=== PATIENT | female | born 1945 | race Caucasian/White ===

== ENCOUNTER → 2016-08-11 | Outpatient (CLI) | payer MEDICARE, BC ==
[~2016-08-11] MED LIST: ASPI-611 PO; BISO10TA11 PO; CLOP75TA19 PO; FERR160T22 PO; HYDR-2164 PO; LISI-114 PO; MULT-806 PO; OMEG500C7 PO; POTA10TA PO; [UNRECOGNIZED DRUG - CODE] PO
--- NOTE | 2016-08-12 07:29 | ECHOF ---
ECHOCARDIOGRAM REPORT DATE OF PROCEDURE August 11, 2016 This is a two-dimensional echo with spectral Doppler, color-flow and M-mode. It was obtained in a patient with chest pain and shortness of air. Left atrial dimension is normal. Left ventricle end-diastolic dimension is normal. Left ventricle wall thickness is normal. LV systolic function is normal with ejection fraction of 65%. Right atrium is normal. Right ventricle is normal. Aortic root dimension is normal. Mitral annulus is mildly calcified. Mitral valve leaflets are normal with mild mitral regurgitation. Aortic valve shows fibrocalcific changes with no stenosis or insufficiency. Tricuspid valve shows mild tricuspid regurgitation with estimated pulmonary artery systolic pressure of 33. Pulmonary valve shows trace of pulmonary insufficiency. There is no pericardial effusion. IMPRESSION 1. Normal LV systolic function with ejection fraction of 65%. 2. Mitral annulus calcification with mild mitral regurgitation. 3. Aortic sclerosis. 4. Mild tricuspid regurgitation with estimated pulmonary artery systolic pressure of 33. 5. Trace of pulmonary insufficiency. MTDD
== END ==
LOC: IMA 06:37
PROVIDERS: ATTEND Internal Medicine Cardiovascular Disease
DX: I08.3 Combined rheumatic disorders of mitral, aortic and tricuspid valves (principal); R06.02 Shortness of breath
CPT/HCPCS: 93306

== ENCOUNTER 2016-08-29 10:21 | Outpatient (CLI) | payer MEDICARE, BC ==
[2016-08-29] VITALS (20 sets, daily range): BP systolic 111–171; BP diastolic 56–83; PULSE 68–84; RESP 15–33; TEMP 98.6; O2SAT 93–97; Ht 167.6 cm; Wt 87.7 kg
[~2016-08-29] VITALS: Ht 167.6 cm; Wt 87.7 kg
--- NOTE | 2016-08-29 10:32 | NUR ---
ADMIT PT AMBULATORY TO ROOM 118. ATTENDING.
[2016-08-29] MEDS ORDERED: POTA10TA14 PO (11:06)
[2016-08-29] MEDS ORDERED: PRED20TA PO (11:06)
[2016-08-29] MEDS ORDERED: LOSA100T44 PO (11:06)
[2016-08-29] MEDS ORDERED: LABE300T PO (11:06)
[2016-08-29] MEDS: NORMAL SALINE 1,000 ML IV SCH (11:08)
[2016-08-29 11:23] LABS: HCT - HEMATOCRIT 38.5 % (36-46); HGB - HEMOGLOBIN 13.1 GM/DL (12-16); MEAN CORPUSCULAR HGB 30.2 UUG (26-34); MEAN CORPUSCULAR VOLUME 88.7 UM3 (80-100); MEAN PLATELET VOLUME 10.3 UM3 (9.4-12.4); RED BLOOD COUNT 4.34 M/MM3 (4.00-5.20); WBC - WHITE BLOOD COUNT 4.9 T/MM3 (4.5-11.0)
[2016-08-29 11:41] LABS: ANION GAP 15 MEQ/L (5-15); BUN/CREATININE RATIO 21 RATIO (6-26); CALCIUM 9.6 MG/DL (8.4-10.2); CHLORIDE 105 MEQ/L (98-107); CO2 - CARBON DIOXIDE 23 MEQ/L (22-30); GLOMERULAR FILTRATION RATE 55; GLUCOSE 162 MG/DL (65-110); POTASSIUM 4.3 MEQ/L (3.6-5); SODIUM 143 MEQ/L (134-144)
[2016-08-29 11:52] LABS: LYMPHOCYTES # (MANUAL) 0.8 T/MM3 (1-4.8); NEUTROPHILS #(MANUAL)-ABSOLUTE 4.1 T/MM3 (1.8-7.7); TOTAL CELLS COUNTED 100 %
[2016-08-29] MEDS ORDERED: HEPARIN 1,000units in NS 500ml BAG IV ONE ×2 (12:32→14:53)
[2016-08-29] MEDS ORDERED: LIDOCAINE 1% (10mg/ml) 30ml SDV ONE (12:32)
--- NOTE | 2016-08-29 14:21 | NUR ---
CM CM IN TO VISIT WITH PT. SHE IS ALERT AND ORIENTED. HER SPOUSE IS PRESENT. PT PLANS TO DC HOME. SHE DENIES DC NEEDS. SHE IS GIVEN CM CONTACT INFORMATION. Addendum: 08/29/16 at 1422 by SATURNINO MAC RN Amended: Links added.
--- NOTE | 2016-08-29 14:36 | NUR ---
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 ATTENDING.
[2016-08-29] MEDS ORDERED: MIDAZOLAM 2mg/2ml INJECTION ONE (14:46)
[2016-08-29] MEDS ORDERED: NITROGLYCERIN 50mg/10ml INJECTION IV ONE (14:46)
[2016-08-29] MEDS ORDERED: FENTANYL 100mcg/2ml INJECTION ONE (14:46)
[2016-08-29] MEDS ORDERED: VERAPAMIL 5mg/2ml INJECTION IV ONE (14:46)
[2016-08-29] MEDS ORDERED: LORAZEPAM 0.5 MG TABLET PO PRN (15:30)
[2016-08-29] MEDS ORDERED: ATROPINE 1 MG/ML VIAL IV PRN (15:30)
[2016-08-29] MEDS ORDERED: NITROGLYCERIN 0.4 MG SUBLINGUAL TABLET SL PRN (15:30)
[2016-08-29] MEDS ORDERED: MILK OF MAGNESIA 30 ML SUSP PO PRN (15:30)
[2016-08-29] MEDS ORDERED: LORAZEPAM 2 MG/ML INJECTION IV PRN (15:30)
[2016-08-29] MEDS ORDERED: ONDANSETRON 4mg/2ml INJECTION IV PRN (15:30)
[2016-08-29] MEDS ORDERED: METOCLOPRAMIDE 10mg/2ml INJECTION IV PRN (15:30)
[2016-08-29] MEDS ORDERED: MAG-AL + SIM LIQUID 30 ML UDC PO PRN (15:30)
[2016-08-29] MEDS ORDERED: ACETAMINOPHEN 325 MG TABLET PO PRN (15:30)
[2016-08-29] MEDS ORDERED: BISACODYL 5 MG E.C. TABLET PO PRN (15:30)
[2016-08-29] MEDS ORDERED: BISACODYL 10 MG SUPPOSITORY RECTALLY PRN (15:30)
--- NOTE | 2016-08-29 15:32 | NUR ---
RETURN PT RETURNED TO ROOM 118 PER CATH CART. WAS ABLE TO TRANSFER SELF TO S.U. BED. SOME SANGUINOUS DRAINAGE NOTED AT RT RADIAL SITE. MONITORING TO INSURE IT IS NOT FROM PUNCTURE. PT VERBALIZING UNDERSTANDING. PT DENIES DISCOMFORT. RADIAL PULSE STRONG TO PALPATION. AT BEDSIDE.
--- NOTE | 2016-08-29 16:15 | NUR ---
BLEEDING ASKED Charles WOODWARD CATH TECH TO ASSESS BLEEDING AROUND TR BAND. HAD INSERTED 2CC AIR. ERINN INSTRUCTED ADDING 1MORE CC AIR AT THIS TIME.
[2016-08-29] MEDS: FERROUS SULFATE 45 MG PO SCH ×2 (17:30→23:41)
--- NOTE | 2016-08-29 18:50 | NUR ---
Charles WOODWARD, TREND INVESTIGATOR, IN ROOM TO RE-EVALUATE TR BAND/BLEEDING. ATTEMPTED TO REMOVE AIR. 2CC OUT MAKING TOTAL 19CC AIR AT THIS TIME. SM AMT OF BLEEDING STILL APPARENT. ERINN WILL RE-EVALUATE AGAIN BEFORE HE LEAVES.
[2016-08-29] MEDS: LABETALOL 300 MG PO SCH (23:41)
--- NOTE | 2016-08-29 23:54 | NUR ---
SUMMARY PT AWAKE AND ALERT. NO COMPLAINTS OF PAIN OR DISCOMFORT. ABLE TO START REMOVING AIR FROM TR BAND AFTER 1999. RIGHT WRIST SITE SOFT WITHOUT SIGNS OF HEMATOMA. TR BAND REMAINS IN PLACE WITH 10CC'S OF AIR-CONTINUE TO REMOVE GRADUALLY EVERY 15 MINUTES. REPORT GIVEN TO ONCOMING RN-HELEN SCHULTZ.
[2016-08-30] VITALS (13 sets, daily range): BP systolic 104–152; BP diastolic 54–69; PULSE 72–77; RESP 17–23; TEMP 97.4–97.7; O2SAT 93–98
[2016-08-30] MEDS: NORMAL SALINE 1,000 ML IV SCH (01:44)
--- NOTE | 2016-08-30 02:14 | NUR ---
Chart Check 24 hour chart check completed
[2016-08-30 05:12] LABS: BASOPHILS % (AUTO) 0.2 % (0-2); EOSINOPHILS % (AUTO) 0.2 % (0-4); HCT - HEMATOCRIT 35.2 % (36-46); HGB - HEMOGLOBIN 11.8 GM/DL (12-16); IMMATURE GRANULOCYTE # (AUTO) 0.02 T/MM3 (0.00-0.03); IMMATURE GRANULOCYTE % (AUTO) 0.2 % (0.0-0.5); LYMPHOCYTES # (AUTO) 1.5 T/MM3 (1-4.8); LYMPHOCYTES % (AUTO) 16.9 % (23-45); MEAN CORPUSCULAR HGB 30.1 UUG (26-34); MEAN CORPUSCULAR HGB CONC(MCHC 33.5 GM/DL (31-37); MEAN CORPUSCULAR VOLUME 89.8 UM3 (80-100); MEAN PLATELET VOLUME 9.8 UM3 (9.4-12.4); MONOCYTES # (AUTO) 0.8 T/MM3 (0-0.8); NEUTROPHILS #(AUTO)-ABSOLUTE 6.3 T/MM3 (1.8-7.7); NEUTROPHILS % (AUTO) 73.5 % (33-66); RED BLOOD COUNT 3.92 M/MM3 (4.00-5.20); WBC - WHITE BLOOD COUNT 8.6 T/MM3 (4.5-11.0)
--- NOTE | 2016-08-30 05:21 | NUR ---
SHIFT SUMMARY PT ALERT AND ORIENTED X 3. PT DENIES PAIN/N/V/SOA. TR BAND REMOVED AT 0415 AND DRESSING APPLIED, NO S/S OF BLEEDING OR HEMATOMA-TISSUE SOFT. CARDIAC DIET. PT UP WITH ASSIST X ONE, STEADY GAIT. PT AMBULATED IN HALLWAY AFTER DRESSING APPLIED, PT STATED THAT SHE COULDN'T BELIEVE IT, SHE COULD WALK WITHOUT HAVING TO STOP AND CATCH HER BREATH. IVL IN LEFT FOREARM, FLUSHES WELL. BED LOCKED AND LOW, BED ALARM ON. CALL LIGHT WITHIN REACH. WILL CONTINUE TO MONITOR.
[2016-08-30 05:29] LABS: ANION GAP 12 MEQ/L (5-15); BUN/CREATININE RATIO 20 RATIO (6-26); CALCIUM 8.9 MG/DL (8.4-10.2); CHLORIDE 105 MEQ/L (98-107); CO2 - CARBON DIOXIDE 26 MEQ/L (22-30); CREATININE 1.1 MG/DL (0.7-1.2); GLOMERULAR FILTRATION RATE 49; GLUCOSE 106 MG/DL (65-110); POTASSIUM 3.5 MEQ/L (3.6-5); SODIUM 143 MEQ/L (134-144)
--- NOTE | 2016-08-30 07:12 | CVPROF ---
DATE OF PROCEDURE August 29, [address] Dick Porras The patient is a pleasant 71-year-old lady with history of coronary artery disease who has been having increasing angina and was referred for further evaluation by cardiac catheterization and possible intervention. Informed consent was obtained after explaining the procedure and the potential risks to the patient who agreed to proceed with the procedure. PROCEDURE 1. Left heart catheterization. 2. Coronary angiography. 3. PTCA and stent of LAD using 2.75 x 12 and 2.75 x 8 mm drug-eluting Resolute Integrity stents. TECHNIQUE She was prepped and draped in the usual sterile techniques. 1% lidocaine was used for local anesthesia. Using modified Seldinger technique, arterial access was obtained into the right radial artery with placement of a 6-Welsh arterial sheath. Conscious sedation was performed using Versed and fentanyl. 3,000 units of heparin, 300 mcg of nitroglycerin and 2.5 mg of verapamil were given through the arterial sheath. Additional 4,000 units of IV heparin was administered prior to intervention. LEFT VENTRICULOGRAPHY Left ventriculography in single-plane JETT shallow projection showed normal LV systolic function with ejection fraction of about 65% with no mitral regurgitation or gradient across the aortic valve. LVEDP was about 3. CORONARY ANGIOGRAPHY Left main was free of significant lesions. Left anterior descending artery had an endovascular stent proximally which had about 80% in-stent stenosis and about 70% stenosis proximal to stent. Mid LAD had about 80% stenosis, however, at that level the LAD was less than 2 mm in diameter. First diagonal also had about 30% stenosis. Left circumflex artery had minor irregularities with no significant lesions. Right coronary artery was large and dominant with an endovascular stent which was widely patent. Remaining course of RCA had about 20-30% stenosis. After reviewing the images we decided to proceed with intervention on LAD. Our sheath was exchanged for a 6-Welsh Cloudy Days left guide which was advanced to the ostium of the left main. Runthrough wire was used to cross the lesion through the LAD into mid diagonal. A 2.5 x 12 drug-eluting Resolute Integrity stent was delivered to the in-stent stenosis site where it was deployed by inflating the balloon to 14 atmospheres. There was a small residual stenosis of about 30% and therefore we used a 2.75 x 12 high-pressure balloon which was inflated up to 20 atmospheres. Next, angiogram showed less than about 20% residual stenosis. Next, we used a 2.75 x 9 mm drug-eluting Resolute Integrity stent which was delivered to the proximal lesion site where it was deployed by inflating the balloon to 14 atmospheres with minimal overlap with the previous stent. Final angiogram showed excellent results with about 20% residual stenosis at the stented site. We did not wish to proceed with any further intervention in mid LAD due to size of the vessel. The patient tolerated the procedure well with no complications. IMPRESSION 1. Coronary artery disease as described above. 2. Successful PTCA and stent of LAD using a 2.75 x 12 and a 2.75 x 9 mm drug-eluting Resolute Integrity stents. 3. Normal LV systolic function with ejection fraction of about 65%. PLAN Continue dual antiplatelet therapy for at least one year and continue risk management. MTDD
[2016-08-30] MEDS ORDERED: HYDROCHLOROTHIAZIDE 25 MG PO SCH (08:00)
[2016-08-30] MEDS ORDERED: --POM--POTASSIUM CHLORIDE 10 MEQ TABLET PO SCH (08:00)
[2016-08-30] MEDS: FERROUS SULFATE 45 MG PO SCH ×2 (08:27→11:36)
[2016-08-30] MEDS: LABETALOL 300 MG PO SCH (08:29)
[2016-08-30] MEDS ORDERED: --POM--LOSARTAN 100 MG TABLET PO SCH (09:00)
[2016-08-30] MEDS ORDERED: MULTIVITAMIN PLAIN TABLET PO SCH (09:00)
[2016-08-30] MEDS ORDERED: ASPIRIN *EC* 81mg TABLET PO SCH (09:00)
[2016-08-30] MEDS ORDERED: --POM--ASPIRIN *EC* 81mg TABLET PO SCH (09:00)
[2016-08-30] MEDS ORDERED: --POM--CLOPIDOGREL 75 MG TABLET PO SCH (09:00)
[2016-08-30] MEDS ORDERED: CLOPIDOGREL 75 MG TABLET PO SCH (09:00)
--- NOTE | 2016-08-30 09:33 | NUR ---
CM CM IN TO VISIT PATIENT, SHE IS UP IN CHAIR, A&O. NO FAMILY IS PRESENT. PATIENT PLANS TO DISCHARGE HOME, DENIES DISCHARGE NEEDS. CM CONTACT INFORMATION PROVIDED.
--- NOTE | 2016-08-30 09:34 | NUR ---
CARDIAC REHAB: VISITED WITH PATIENT ABOUT CARDIAC REHAB, BROCHURE GIVEN. PATIENT LIVES IN [place] SO ALSO GAVE [place] PROGRAM CONTACT BUT SHE WILL DECIDED WHICH PROGRAM IN THE NEXT COUPLE DAYS AND WE WILL FOLLOW UP WITH HER.
[2016-08-30] MEDS ORDERED: POTASSIUM CHLORIDE 20 MEQ TABLET PO ONE (10:15)
[2016-08-30] MEDS ORDERED: PITA2TAB PO (11:17)
--- NOTE | 2016-08-30 14:49 | NUR ---
DC INSTRUCTIONS DC INSTRUCTIONS INCLUDING DIET, ACTIVITY, MEDICATIONS, SCRIPTS, LABS, FOLLOW UP APPOINTMENT, STENT ID CARD, REPORTABLE S/S AND [facility] TRANS RADIAL HEART CATH INSTRUCTIONS GIVEN AND REVIEWED WITH PATIENT. SCRIPTS FOR LABS GIVEN TO PATIENT AND COPIES PLACED IN CHART. PT VERBALIZED UNDERSTANDING OF THESE INSTRUCTIONS AND HAD NO FURTHER QUESTIONS.
--- NOTE | 2016-08-30 16:37 | NUR ---
DISCHARGE PT DISCHARGED TO HOME AT THIS TIME IN THE COMPANY OF HER . PT TRANSPORTED TO THE ER ENTRANCE BY WHEELCHAIR AND STAFF. IVL DISCONTINUED. ARMBAND REMOVED. SPLINT TO RIGHT WRIST REMAINED IN PLACE. DISCHARGE INSTRUCTIONS GIVEN PER PREVIOUS NOTE. PERSONAL BELONGINGS AND HOME MEDICATIONS RETURNED.
== END 2016-08-30 16:37 | disposition home or self-care (01) ==
LOC: SRG 10:21 → CATH 10:21
PROVIDERS: ATTEND Internal Medicine Cardiovascular Disease
DX: T82.855A Stenosis of coronary artery stent, initial encounter (principal); I25.709 Atherosclerosis of coronary artery bypass graft(s), unspecified, with unspecified angina pectoris; R07.2 Precordial pain; I10 Essential (primary) hypertension; E78.2 Mixed hyperlipidemia; I27.2 Other secondary pulmonary hypertension; Z79.82 Long term (current) use of aspirin; Z79.02 Long term (current) use of antithrombotics/antiplatelets; Z79.52 Long term (current) use of systemic steroids; Z79.899 Other long term (current) drug therapy; Z82.49 Family history of ischemic heart disease and other diseases of the circulatory system
CPT/HCPCS: 36415; 80048; 85025; 93005; 93458; A9270; C1725; C1769; C1874; C1887; C1893; C9600; J1644; J2250; J3010; J3490; J7030; Q9967

== ENCOUNTER 2016-11-04 08:36 | Observation (INO) ==
[2016-11-04] MEDS: NITROGLYCERIN 0.4 MG SUBLINGUAL TABLET SL PRN ×3 (08:57→09:10)
[2016-11-04] MEDS: SALINE FLUSH 10ml SYRINGE IVF PRN ×2 (09:00→09:37)
--- NOTE | 2016-11-04 09:04 | Emergency Department Report ---
Chest Pain HPI - General Chief Complaint: Chest Pain Stated Complaint: heart pain, nausea Time Seen by Provider: 11/04/16 08:40 Source: patient Mode of arrival: ambulatory Limitations: no limitations - History of Present Illness HPI narrative: Patient is a 71-year-old female, presents to the emergency department for evaluation of chest tightness, not feeling well. Patient status post cardiac catheterization in August had 2 stents placed at that time. Patient states that there was an area of stenosis that they were having difficulty with so that was not stented. Patient has been in usual state of good health until last night patient states that they were doing some work further business in the wee hours of the morning she started to not feel well. Patient woke up this morning continuing to not feel well, went to work and patient started having some what she described as a fullness feeling in her chest and tightness. Patient decided present to the ER. Patient does have nitroglycerin at home, however did not take. On arrival patient's vital signs are within defined limits currently complaining of 8/10 "fullness". MD complaint: chest pain Occurred At: home Onset (ago): hour(s) Duration: constant Quality: tightness - Related Data Home Medications Medication Instructions Recorded Confirmed Clopidogrel Bisulfate [Plavix] 75 mg PO DAILY #0 11/16/11 11/04/16 hydroCHLOROthiazide 25 mg PO DAILY #0 11/16/11 11/04/16 [Hydrochlorothiazide] Labetalol HCl 300 mg PO HS #0 tab 08/29/16 11/04/16 Potassium Chloride 10 meq PO 2-4XD #0 tab 08/29/16 11/04/16 Losartan Potassium 300 mg PO HS #0 tab 09/29/16 11/04/16 Aspirin [[place] Aspirin] 81 mg PO HS 11/04/16 11/04/16 Ferrous Sulfate [Slow Release Iron] 1 tab PO DAILY 11/04/16 11/04/16 Multivitamin [One-A-Day Essential] 2 each PO HS 11/04/16 11/04/16 Pitavastatin Calcium [Livalo] 2 mg PO DAILY 11/04/16 11/04/16 Allergies Allergy/AdvReac Type Severity Reaction Status Date / Time Penicillins Allergy Mild RASH Verified 11/04/16 08:49 Sulfa (Sulfonamide Allergy Mild RASH Verified 11/04/16 08:49 Antibiotics) codeine Allergy Unknown RED ITCHY Verified 11/04/16 08:49 latex Allergy Unknown RASH, Verified 11/04/16 08:49 BLISTER levofloxacin Allergy Unknown SWELLING, Verified 11/04/16 08:49 BLURRED VISION atorvastatin calcium Allergy Unknown TURNS RED, Uncoded 11/04/16 08:49 SWELLING OF MOUTH AND TONGUE, MYALGIAS iodine-123 Allergy Unknown SWELLING, Uncoded 11/04/16 08:49 REDNESS PFS Patient Stated Medical History Other HEENT Yes: SINUS Angina Yes Hypertension Yes Other Yes: YEAST INFECTIONS WITH ABX Other Hematologic Yes: B Medical History Updates: CAD - Social History Smoking status: Never smoker Substance use type: does not use Alcohol intake frequency: does not drink Physical Exam - Limitations Limitations: no limitations - General General appearance: alert, in no apparent distress - ENT ENT exam: Present: normal oropharynx, mucous membranes moist - Neck Neck exam: Present: full ROM - Chest Chest inspection: Present: symmetric chest wall rise. Absent: tenderness, rash - Respiratory Respiratory exam: Present: normal lung sounds bilaterally. Absent: respiratory distress, wheezes, stridor - Cardiovascular Cardiovascular exam: Present: regular rate, normal rhythm - Abdominal Exam Abdominal exam: Present: soft. Absent: distention, tenderness - Extremities Exam Extremities exam: Present: full ROM, normal capillary refill. Absent: tenderness - Skin Skin exam: Present: warm, dry - Neurological Exam Neurological exam: Present: alert, oriented X3 - Psychiatric Psychiatric exam: Present: normal affect, normal mood Course Vital Signs Temperature 98.3 F 11/04/16 08:38 Pulse Rate 73 11/04/16 08:38 Respiratory Rate 20 11/04/16 08:38 Blood Pressure 134/67 11/04/16 08:38 Pulse Oximetry 98 11/04/16 08:38 Temperature 98.5 F 11/04/16 15:43 Pulse Rate 68 11/04/16 15:43 Respiratory Rate 16 11/04/16 15:43 Blood Pressure 117/58 11/04/16 15:43 Pulse Oximetry 94 11/04/16 15:43 Chest Pain - Differential Diagnosis Likely: pneumothorax, stable angina, unstable angina pectoris, atypical chest pain, costochondritis, chest pain - Medical Records Data Attestation: I reviewed the patient's medical records. - Lab Data Attestation: I reviewed the patient's lab results. Result diagrams: 11/04/16 08:59 11/04/16 08:59 Lab Results 11/04/16 11/04/16 Range/Units 08:59 08:59 WBC 5.2 (4.5-11.0) T/MM3 RBC 3.98 L (4.00-5.20) M/MM3 Hgb 12.1 (12-16) GM/DL Hct 37.4 (36-46) % MCV 94.0 (80-100) UM3 MCH 30.4 (26-34) UUG MCHC 32.4 (31-37) GM/DL RDW Std Deviation 44.8 (36.9-50.2) FL Plt Count 212 (130-400) T/MM3 MPV 9.5 (9.4-12.4) UM3 Immature Gran % (Auto) 0.2 (0.0-0.5) % Neut % (Auto) 60.8 (33-66) % Lymph % (Auto) 22.5 L (23-45) % [place] % (Auto) 9.6 H (0-9.0) % Eos % (Auto) 6.3 H (0-4) % Baso % (Auto) 0.6 (0-2) % Neut # 3.2 (1.8-7.7) T/MM3 Lymph # 1.2 (1-4.8) T/MM3 [place] # 0.5 (0-0.8) T/MM3 Eos # 0.3 (0-0.5) T/MM3 Baso # 0.0 (0-0.2) T/MM3 Abs Immat Gran (auto) 0.01 (0.00-0.03) T/MM3 Turbidity < 20 (0-20) Sodium 141 (134-144) MEQ/L Potassium 4.0 (3.6-5) MEQ/L Chloride 106 (98-107) MEQ/L Carbon Dioxide 27 (22-30) MEQ/L Anion Gap 8 (5-15) MEQ/L BUN 15.0 (7-17) MG/DL Creatinine 1.1 (0.7-1.2) MG/DL GFR Calculation 49 BUN/Creatinine Ratio 14 (6-26) RATIO Glucose 87 (65-110) MG/DL Calculated Osmolality 271 (261-280) MOSM/KG Calcium 8.9 (8.4-10.2) MG/DL Total Bilirubin 0.50 (0.20-1.30) MG/DL Icterus Index < 2 (0-7) AST 21 (14-36) U/L ALT 36 (9-52) U/L Alkaline Phosphatase 92 (38-126) U/L Troponin I < 0.012 (0-0.12) ng/ml B-Natriuretic Peptide 396 H (0-175) pg/mL Total Protein 6.5 (6.3-8.2) G/DL Albumin 4.2 (3.5-5.0) G/DL Globulin 2.3 L (2.4-3.6) G/DL Albumin/Globulin Ratio 1.8 (1.1-2.2) RATIO Specimen Hemolysis < 15 (0-25) - Radiology Data Attestation: I reviewed the patient's radiology results. - EKG Data EKG #1 EKG shows normal: sinus rhythm Rate: normal Rhythm: NSR [place]/QRS: normal Interpretation: no acute changes Disposition Clinical Impression: Chest pain Qualifiers: Chest pain type: unspecified Qualified Code(s): R07.9 - Chest pain, unspecified Disposition: 02 To [facility] Condition: Stable Time of Disposition: 09:40 - Seen By: physician
--- NOTE | 2016-11-04 09:24 | XRay Report ---
Indication: chest pain PROCEDURE: XR chest 1V: Encounter: Initial Comparison: May 10, 2016 Findings: The lungs are stable in appearance without new focal airspace consolidation. There is no pleural effusion or pneumothorax. The heart size, pulmonary vascularity and mediastinal contours are unchanged. Coronary artery stents. IMPRESSION: Stable appearance of the chest without acute cardiopulmonary disease. .
[2016-11-04] MEDS ORDERED: ONDANSETRON 4 MG/2 ML INJECTION IVP ONE (09:29)
[2016-11-04] MEDS ORDERED: MORPHINE SULFATE 2 MG SYRINGE IVP ONE ×2 (09:29→10:07)
[2016-11-04 10:57] VITALS: BMI 32.2
--- NOTE | 2016-11-04 11:58 | Cardiology History & Physical ---
History of Present Illness Chief complaint: chest pain HPI: Raina is a 71 year old female who is well known to Dr. Beltran who has a history of CAD with coil and stents, pulmonary hypertension, HTN and HLD. Her last heart cath was in August of 2016 at which time she had in stent stenosis to the stent in her LAD, which was restented and and ballooned. She arrived this morning to [facility] for cardiac rehab and after 6 minutes on the stationary bicycle she began to have chest tightness and severe nausea. She was taken to the ED. Her EKG showed a SR with minimal ST depression in precordial leads similar to last clinic EKG in August. She was given Nitro SL and MS IV which eased the pain some but did not resolve it completely. She describes the feeling of her heart is full or expanding against her chest wall and the chest is restricting her heart. Troponin was negative and Chest xray showed no cardiopulmonary disease. I examined her in the ED. She reports the discomfort is about 6/8 at this time, nausea has resolved following anti-emetic. She denies SOA, dizziness or syncope. She has recently seen a Dr who began her on a nasal steroid for sinusitis, other german has been in her usual state of health. Review of Systems - Constitutional Constitutional: Absent: chills, fever(s) - EENMT Eyes: Absent: change in vision Balance: Absent: vertigo Mouth/Throat: Absent: sore throat - Cardiovascular Cardiovascular: Present: chest pain. Absent: palpitations, syncope, dyspnea on exertion Vascular: Present: pedal edema - Respiratory Respiratory: Absent: cough, dyspnea - Gastrointestinal Gastrointestinal: Absent: diarrhea, nausea, vomiting - Genitourinary Genitourinary: Absent: dysuria - Integumentary/Breasts Integumentary: Absent: rash - Neurological Neurological: Absent: dizziness PFSH Patient Stated Medical History Other HEENT Yes: SINUS Angina Yes Hypertension Yes Hyperlipidemia Yes Other Yes: YEAST INFECTIONS WITH ABX Medical History Updates: CAD Surgical History: Total Hysterectomy. Cholecystectomy. Heart cath with stents. multiple foot surgeries. inguinal and hiatel hernias Family History: CHF -Mother - Social History Smoking status: Never smoker Substance use type: does not use Alcohol intake frequency: holidays/special occasions only Household members: spouse Current occupational status: retired Current residence: Apartment/Private Home Medications Home Medications Medication Instructions Recorded Confirmed Type Clopidogrel Bisulfate [Plavix] 75 mg PO DAILY #0 11/16/11 11/04/16 History hydroCHLOROthiazide 25 mg PO DAILY #0 11/16/11 11/04/16 History [Hydrochlorothiazide] Labetalol HCl 300 mg PO HS #0 tab 08/29/16 11/04/16 History Potassium Chloride 10 meq PO 2-4XD #0 tab 08/29/16 11/04/16 History Losartan Potassium 300 mg PO HS #0 tab 09/29/16 11/04/16 History Aspirin [[place] Aspirin] 81 mg PO HS 11/04/16 11/04/16 History Ferrous Sulfate [Slow Release Iron] 1 tab PO DAILY 11/04/16 11/04/16 History Multivitamin [One-A-Day Essential] 2 each PO HS 11/04/16 11/04/16 History Pitavastatin Calcium [Livalo] 2 mg PO DAILY 11/04/16 11/04/16 History Allergies Allergy/AdvReac Type Severity Reaction Status Date / Time Penicillins Allergy Mild RASH Verified 11/04/16 08:49 Sulfa (Sulfonamide Allergy Mild RASH Verified 11/04/16 08:49 Antibiotics) codeine Allergy Unknown RED ITCHY Verified 11/04/16 08:49 latex Allergy Unknown RASH, Verified 11/04/16 08:49 BLISTER levofloxacin Allergy Unknown SWELLING, Verified 11/04/16 08:49 BLURRED VISION atorvastatin calcium Allergy Unknown TURNS RED, Uncoded 11/04/16 08:49 SWELLING OF MOUTH AND TONGUE, MYALGIAS iodine-123 Allergy Unknown SWELLING, Uncoded 11/04/16 08:49 REDNESS Exam Vital signs: Temperature 98.6 F 11/04/16 10:46 Pulse Rate 64 11/04/16 11:09 Respiratory Rate 12 11/04/16 10:46 Blood Pressure 129/60 11/04/16 10:46 Pulse Oximetry 95 11/04/16 10:46 Oxygen Delivery Method Room Air - Constitutional no acute distress, well nourished, cooperative - Routine HEENT Exam ENT: Present: mucous membranes moist - Routine Neck Exam Absent: JVD, carotid bruit - Routine Chest/Breast/Axilla Exam Chest wall: Absent: tenderness - Routine Respiratory Exam Present: CTA bilaterally. Absent: rales, wheezes - Routine Cardiovascular Exam Present: RRR, S1, S2, no murmur. Absent: JVD - Routine Abdominal Exam Present: soft, non tender - Routine Extremities Exam Present: edema (trace) - Routine Skin Exam Present: intact - Routine Neurological Exam Present: alert, oriented X3 - Routine Psychiatric Exam Present: normal affect, normal thought process Results 11/04/16 08:59 11/04/16 08:59 Intake and Output 11/03/16 11/04/16 11/04/16 22:59 06:59 14:59 Other: Weight 199 lb 11.821 oz Patient Weight 11/05/16 06:59 Weight 199 lb 11.821 oz Laboratory Results - last 48 hr 11/04/16 11/04/16 08:59 08:59 WBC 5.2 RBC 3.98 L Hgb 12.1 Hct 37.4 MCV 94.0 MCH 30.4 MCHC 32.4 RDW Std Deviation 44.8 Plt Count 212 MPV 9.5 Immature Gran % (Auto) 0.2 Neut % (Auto) 60.8 Lymph % (Auto) 22.5 L [place] % (Auto) 9.6 H Eos % (Auto) 6.3 H Baso % (Auto) 0.6 Neut # 3.2 Lymph # 1.2 [place] # 0.5 Eos # 0.3 Baso # 0.0 Abs Immat Gran (auto) 0.01 Turbidity < 20 Sodium 141 Potassium 4.0 Chloride 106 Carbon Dioxide 27 Anion Gap 8 BUN 15.0 Creatinine 1.1 GFR Calculation 49 BUN/Creatinine Ratio 14 Glucose 87 Calculated Osmolality 271 Calcium 8.9 Total Bilirubin 0.50 Icterus Index < 2 AST 21 ALT 36 Alkaline Phosphatase 92 Troponin I < 0.012 B-Natriuretic Peptide 396 H Total Protein 6.5 Albumin 4.2 Globulin 2.3 L Albumin/Globulin Ratio 1.8 Specimen Hemolysis < 15 EKG interpretations - Dysrhythmias Sinus rhythms and dysrhythmias: sinus rhythm - Blocks, axis, hypertrophy, ST abn Repolarization changes or abnormalities: nonspecific abnormality, ST segment, and/or T wave Hospital Course This is a general summary of the patient's hospital course. For more details refer to the complete medical record. Assessment and Plan (1) Chest pain Status: Resolved Trend serial troponin levels, first is negative. Repeat EKG later. Echo report pending, not concerning per Dr. Beltran who was at the bedside while is was being obtained. (2) Atherosclerosis of coronary artery bypass graft without angina pectoris Status: Chronic Continue dual antiplatelet therapy with Aspirin 81mg and Plavix 75mg daily (3) Other secondary pulmonary hypertension Status: Chronic routine monitoring (4) Essential (primary) hypertension Status: Chronic Well controlled on current therapy, continue home medications (5) Mixed hyperlipidemia Status: Chronic Patient takes Livalo, continue current therapy - Attestation Attestation Narrative: Recommendation After examining the patient I agree with the above assessment. I am involved in the formulation of the patient's plan of care. Sepsis Assessment - Evaluation Sepsis screening result: No Definite Risk
[2016-11-04] MEDS ORDERED: ASPIRIN 81 MG CHEWABLE TABLET PO SCH (22:00)
[2016-11-04] MEDS ORDERED: LABETALOL 100 MG TABLET PO SCH (22:00)
[2016-11-05] MEDS ORDERED: FERROUS SULFATE 324 MG TABLET PO SCH (08:00)
[2016-11-05] MEDS ORDERED: LOSARTAN 100 MG TABLET PO SCH (09:00)
[2016-11-05] MEDS ORDERED: CLOPIDOGREL 75 MG TABLET PO SCH (09:00)
[2016-11-05] MEDS ORDERED: PITAVASTATIN CALCIUM 2 MG PO SCH (09:00)
[2016-11-05] MEDS ORDERED: MULTI-VITAMIN + MINERAL TABLET PO SCH (09:00)
[2016-11-05 15:19] VITALS: BP 109/50; RESP 16; TEMP 98.2; O2SAT 94
[2016-11-05 16:20] VITALS: PULSE 69
--- NOTE | 2016-11-05 16:33 | Discharge Instructions ---
Discharge Plan - Med Rec/Dispo Referrals/Follow Up: Jean Beltran MD [Physician] - Prescriptions: No Action hydroCHLOROthiazide [Hydrochlorothiazide] 25 mg PO DAILY #0 Clopidogrel Bisulfate [Plavix] 75 mg PO DAILY #0 Labetalol HCl 300 mg PO HS #0 tab Aspirin [[place] Aspirin] 81 mg PO HS Pitavastatin Calcium [Livalo] 2 mg PO DAILY Multivitamin [One-A-Day Essential] 2 each PO HS Potassium Chloride 10 meq PO 2-4XD #0 tab Losartan Potassium 300 mg PO HS #0 tab Ferrous Sulfate [Slow Release Iron] 1 tab PO DAILY - Disposition 01 Discharged Home, Self-Care
--- NOTE | 2016-11-05 16:36 | Discharge Summary ---
Discharge Information Date of admission: 11/04/16 10:39 Attending Physician: Jean Beltran MD Primary care physician: Gus Rao - Discharge Diagnosis (1) Chest pain Qualifiers: Chest pain type: unspecified Qualified Code(s): R07.9 - Chest pain, unspecified Status: Resolved (2) Atherosclerosis of coronary artery bypass graft without angina pectoris Status: Chronic (3) Other secondary pulmonary hypertension Status: Chronic (4) Essential (primary) hypertension Status: Chronic (5) Mixed hyperlipidemia Status: Chronic - Laboratory Labs: Laboratory Results - last 24 hr 11/04/16 11/05/16 20:44 02:57 Troponin I < 0.012 < 0.012 Specimen Hemolysis < 15 < 15 Laboratory Tests 11/04/16 11/04/16 11/04/16 08:59 08:59 15:13 WBC 5.2 RBC 3.98 L Hgb 12.1 Hct 37.4 MCV 94.0 MCH 30.4 MCHC 32.4 RDW Std Deviation 44.8 Plt Count 212 MPV 9.5 Immature Gran % (Auto) 0.2 Neut % (Auto) 60.8 Lymph % (Auto) 22.5 L [place] % (Auto) 9.6 H Eos % (Auto) 6.3 H Baso % (Auto) 0.6 Neut # 3.2 Lymph # 1.2 [place] # 0.5 Eos # 0.3 Baso # 0.0 Abs Immat Gran (auto) 0.01 Turbidity < 20 Sodium 141 Potassium 4.0 Chloride 106 Carbon Dioxide 27 Anion Gap 8 BUN 15.0 Creatinine 1.1 GFR Calculation 49 BUN/Creatinine Ratio 14 Glucose 87 Calculated Osmolality 271 Calcium 8.9 Total Bilirubin 0.50 Icterus Index < 2 AST 21 ALT 36 Alkaline Phosphatase 92 Troponin I < 0.012 < 0.012 B-Natriuretic Peptide 396 H Total Protein 6.5 Albumin 4.2 Globulin 2.3 L Albumin/Globulin Ratio 1.8 Specimen Hemolysis < 15 < 15 11/04/16 11/05/16 20:44 02:57 WBC RBC Hgb Hct MCV MCH MCHC RDW Std Deviation Plt Count MPV Immature Gran % (Auto) Neut % (Auto) Lymph % (Auto) [place] % (Auto) Eos % (Auto) Baso % (Auto) Neut # Lymph # [place] # Eos # Baso # Abs Immat Gran (auto) Turbidity Sodium Potassium Chloride Carbon Dioxide Anion Gap BUN Creatinine GFR Calculation BUN/Creatinine Ratio Glucose Calculated Osmolality Calcium Total Bilirubin Icterus Index AST ALT Alkaline Phosphatase Troponin I < 0.012 < 0.012 B-Natriuretic Peptide Total Protein Albumin Globulin Albumin/Globulin Ratio Specimen Hemolysis < 15 < 15 History of Present Illness HPI: Raina is a 71 year old female well known to Dr. Beltran with a history of CAD, coronary stents, pulmonary hypertension, HTN and HLD. Her last heart cath was in August of 2016 at which time she had in stent stenosis to the stent in her LAD , which was restented and and ballooned. After 6 minutes on the stationary bicycle at [facility] she began to have chest tightness and severe nausea. She was taken to the ED. Her EKG showed a SR with minimal ST depression in precordial leads similar to last clinic EKG in August. She was given Nitro SL and MS IV which eased the pain some but did not resolve it completely. She describes the feeling of her heart is full or expanding against her chest wall and the chest is restricting her heart. Troponin was negative and Chest xray showed no cardiopulmonary disease. Hospital Course This is a general summary of the patient's hospital course. For more details refer to the complete medical record. Nargis remained chest pain free throughout the course of the last 24 hours. She has maintained SR on tele, vitals stable. Her serial troponin were all negative. We will plan to keep her on DAPT therapy, maximize CAD risk factor treatment. Continue her livalo, losartan at 100mg daily, hctz and lopressor. Monitor bp as OP and bring to f/u appt in one week. Pt has SL nitro already rx'd , pt ed on use. Time spent with patient: 25 - 35 minutes Discharge Plan - Med Rec/Dispo Referrals/Follow Up: Jean Beltran MD [Physician] - Steven Instructions: Angina (DC) Prescriptions: No Action hydroCHLOROthiazide [Hydrochlorothiazide] 25 mg PO DAILY #0 Clopidogrel Bisulfate [Plavix] 75 mg PO DAILY #0 Labetalol HCl 300 mg PO HS #0 tab Aspirin [[place] Aspirin] 81 mg PO HS Pitavastatin Calcium [Livalo] 2 mg PO DAILY Multivitamin [One-A-Day Essential] 2 each PO HS Potassium Chloride 10 meq PO 2-4XD #0 tab Losartan Potassium 300 mg PO HS #0 tab Ferrous Sulfate [Slow Release Iron] 1 tab PO DAILY - Disposition 01 Discharged Home, Self-Care
--- NOTE | 2016-11-09 09:26 | Echocardiogram ---
DATE OF PROCEDURE November 04, 2016 This a two-dimensional echo with spectral Doppler, color-flow and M-mode. It was obtained in a patient with chest pain. Left atrial dimension is normal. Left ventricle end-diastolic dimension is normal. Left ventricular wall thickness is normal. LV systolic function is normal with ejection fraction of 70%. Right atrium is normal. Right ventricle is normal. Aortic root dimension is normal. Mitral valve is morphologically normal with mild mitral regurgitation. Aortic valve appears to be normal. Tricuspid valve shows [id number] tricuspid regurgitation with moderate pulmonary hypertension with estimated pulmonary artery systolic pressure of 46. Pulmonary valve shows no pulmonary insufficiency. There is no pericardial effusion. IMPRESSION 1. Normal LV systolic function with ejection fraction of 70%. 2. Mild mitral regurgitation. 3. [id number] tricuspid regurgitation with moderate pulmonary hypertension with estimated pulmonary artery systolic pressure of 46. MTDD
== END 2016-11-05 17:15 | disposition home or self-care (01) ==
LOC: SRG 08:36 → ED 08:36 → SRG 10:44
PROVIDERS: ADMIT Internal Medicine Cardiovascular Disease; ATTEND Internal Medicine Cardiovascular Disease